=== PATIENT | female | born 1970 | race Caucasian/White ===

== ENCOUNTER → 2019-07-24 | Outpatient (CLI) | payer BC ==
--- NOTE | 2019-07-24 08:55 | US ---
EXAMINATION TYPE: US abdomen complete DATE OF EXAM: 07/24/2019 COMPARISON: NONE CLINICAL HISTORY: R10.13 Dyspepsia x months, GERD, multiple lipomas per patient EXAM MEASUREMENTS: Liver Length: 12.3 cm Gallbladder Wall: 0.3 cm CBD: 0.3 cm Spleen: 9.6 x10.1 x 3.7cm Right Kidney: 10.0 x 6.1 x 4.6 cm Left Kidney: 10.4 x 6.6 x 5.4 cm Pancreas: wnl Liver: Complex, hyperechoic, vascular and lobular mass in left lobe = 6.4 x 6.2 x 4.7cm. This is per ipherally hyperechoic and centrally hypoechoic with peripheral vascular flow. This appears solitary w ith no other hepatic masses seen. Gallbladder: wnl Evidence for sonographic Andres's sign: tender at epigastric area CBD: wnl Spleen: wnl Right Kidney: No hydronephrosis or masses seen Left Kidney: No hydronephrosis or masses seen Upper IVC: wnl Abd Aorta: wnl IMPRESSION: There is a 6.4 cm complex left hepatic lobe mass. In a patient with no underlying hepatoc ellular disease and is possible this represents an adenoma or focal nodular hyperplasia given its randy rly avascular characteristics. However hepatocellular carcinoma or fibrolamellar carcinoma are possib ilities and further characterization with enhanced MRI of the abdomen is recommended (liver mass prot ocol). A Hall level critical message alert has been initiated for Sammi Lee MD via the [facility] Critical Results System on 07/24/2019 8:53 AM. This message alert has been sent to Sammi Lee MD vi a the preferences provided by the clinician for the receipt of Radiology Critical Findings. Message I D [id number].
== END | disposition home or self-care (01) ==
LOC: RADUSWWP 07:30
PROVIDERS: ATTEND Internal Medicine
DX: R16.0 Hepatomegaly, not elsewhere classified (principal)
CPT/HCPCS: 76700

== ENCOUNTER → 2019-08-08 | Outpatient (CLI) | payer BC ==
--- NOTE | 2019-08-08 20:36 | MR ---
EXAMINATION TYPE: MR liver wo/w con DATE OF EXAM: 08/08/2019 COMPARISON: Complete abdominal ultrasound July 24, 2019. HISTORY: Dyspepsia, abnormal US CONTRAST: Standard multiplanar, multisequence MRI departmental protocol utilizing 12 mL intravenous Gadavist ga dolinium contrast. FINDINGS: Liver: Liver is overall normal in size. There is roughly 6 mm simple appearing thin-walled cyst in th e anterior hepatic dome coronal image 11. There is additional tiny 3 mm simple appearing thin-walled cyst right hepatic lobe axial image 24. Corresponding to ultrasound in the inferior left hepatic lobe there is lobulated heterogeneous mass measuring roughly 5.1 cm transversely by 4.9 cm AP diameter ax ial image 18 series 501, and measures 6 cm craniocaudal diameter coronal image 10. Lesion has T2 hype rintensity with more focal areas of more prominent hyperintensity and T1 hypointensity relative to re mainder of liver. Dynamic postcontrast images show peripheral nodular enhancement with progressive ce ntripetal filling consistent with a giant hemangioma. No additional concerning intrahepatic masses. Gallbladder is contracted. No biliary dilatation is seen. Other: Lung bases are clear. Debris filled stomach is present suggesting recent meal ingestion likely accounting for contracted gallbladder. Spleen and pancreas are within normal limits. Both adrenal gl ands unremarkable. There is a tiny 4 mm simple appearing thin-walled cyst upper pole right kidney see n best image 17 series 401. No hydronephrosis in either kidney. No concerning small or large bowel di latation. Visualized osseous structures are intact. No abdominal ascites or suspicious abdominal brittnee opathy. IMPRESSION: 1. No acute findings identified to account for patient's symptoms of dyspepsia. 2. Confirmation of solid 6 cm lobulated mass left hepatic lobe corresponding to heterogeneous slightl y hyperechoic lesion on ultrasound. Dynamic MRI characteristics consistent with large or giant herb ioma. Due to size with increased risk for rupture or bleeding, surgical consultation is advised.
== END | disposition home or self-care (01) ==
LOC: RADMRIMAIN 18:58
PROVIDERS: ATTEND Internal Medicine
DX: R16.0 Hepatomegaly, not elsewhere classified (principal)
CPT/HCPCS: 74183; A9585